=== PATIENT | male | born 1985 | race Caucasian/White ===

== ENCOUNTER 2025-08-24 08:50 | Emergency (ER) | payer OTHER ==
[~2025-08-24] VITALS: Ht 180.3 cm; Wt 77.1 kg
[2025-08-24] MEDS ORDERED: Lidocaine 2% Viscous Soln 15 ML UDC PO ONE (09:25)
[2025-08-24] MEDS ORDERED: Lidocaine 2% Viscous Soln 100 ML BTL TOP ONE (09:55)
[2025-08-24] MEDS ORDERED: Lidocaine 2% Viscous Soln 15 ML UDC XX ONE (10:05)
[2025-08-24] MEDS ORDERED: Ketorolac Tromethamine 30mg Vial IV ONE (10:20)
== END 2025-08-24 11:00 | disposition home or self-care (01) ==
LOC: ER 08:50
DX: S30.21XA Contusion of penis, initial encounter (principal); S37.30XA Unspecified injury of urethra, initial encounter; X58.XXXA Exposure to other specified factors, initial encounter; Y92.59 Other trade areas as the place of occurrence of the external cause
CPT/HCPCS: 51798; 96374; 99283-25; A9270; J1885